=== PATIENT | male | born 1990 | race Caucasian/White ===

== ENCOUNTER → 2018-10-23 09:18 | Outpatient (CLI) | payer BC, SELFPAY ==
[2018-10-23 08:56] VITALS: BMI 30.4
[2018-10-23 11:06] LABS: AST(SGOT) 26 U/L (15-37); Alanine Aminotransfer ALT/SGPT 42 U/L (16-61); Albumin, Serum 4.2 g/dL (3.2-5.0); Alkaline Phosphatase 42 U/L (45-117); Anion Gap 8 (5-15); BUN 17 mg/dL (7-18); BUN/Creat Ratio 13.4 RATIO (10-20); Bilirubin, Direct 0.27 mg/dL (0.00-0.30); Chloride 103 mmol/L (98-107); Cholesterol 173 mg/dL (200); Creatinine, Serum 1.27 mg/dL (0.70-1.30); EST Glomerular Filtration Rate 72 mL/min (>60); Est Glom Filt Rate - Afr Amer 87 mL/min (>60); Globulin 2.7 g/dL (2.2-4.2); Glucose 86 mg/dL (74-106); High Density Lipoprotein 44 mg/dL; Protein, Total 6.9 g/dL (6.4-8.2); Sodium Level 138 mmol/L (136-145); Thyroid Stim Hormone (TSH) 2.12 uIU/mL (0.358-3.74); Triglycerides 142 mg/dL; Very Low Density Lipoprotein 28 mg/dL (5-40)
== END ==
PROVIDERS: Family Provider Family Medicine; PCP Family Medicine; Referring Provider Internal Medicine Cardiovascular Disease; Visit Provider Internal Medicine Cardiovascular Disease
DX: I10 Essential (primary) hypertension (principal)
CPT/HCPCS: 36415; 80048; 80061; 80076; 84443

== ENCOUNTER → 2024-03-04 | Outpatient (CLI) | payer OTHER, SELFPAY ==
[2024-03-04 15:05] LABS: Absolute Neutrophil Count 7.7 X10^3/uL (2.0-7.7); Basophil# 0.05 X10^3/uL; Basophil% 0.5 % (0-1); Eosinophils% 0.9 % (0-5); Hematocrit 40.8 % (40-54); Lymphocyte % 17.5 % (19-41); Mean Corp Hgb Conc 36.8 g/dL (32-36); Mean Corpuscular Hgb 34.2 pg (27.0-32.0); Mean Corpuscular Volume 93.2 fL (80-94); Mean Platelet Vol. 10.5 fl (6.2-12.0); Monocyte# 1.08 X10^3/uL; NRBC Flagged by Analyzer 0 % (0-5); Neutrophil # 7.66 X10^3/uL (2.7-7.7); Neutrophil % 70.6 % (47-70); Platelet Count 293 K/mm3 (150-450); RBC Distribution Width CV 13.1 % (11.6-14.6); RBC Distribution Width SD 44.3 fl (35.1-43.9); Red Blood Count 4.38 M/mm3 (4.6-6.2); White Blood Count 10.8 K/mm3 (4.4-11.0)
[2024-03-04 15:49] LABS: Erythrocyte Sedimentation Rate 2 mm/hr (0-20)
== END | disposition home or self-care (01) ==
LOC: LAB 14:17
PROVIDERS: Referring Provider Physician Assistant; Visit Provider Physician Assistant
DX: M25.521 Pain in right elbow (principal)
CPT/HCPCS: 36415; 85025; 85652; 86140

== ENCOUNTER 2024-04-15 09:43 | Emergency (ER) | payer OTHER, SELFPAY ==
[2024-04-15 09:45] VITALS: BP 161/101; PULSE 111; RESP 16; TEMP 36.6; O2SAT 94; BMI 30.4
--- NOTE | 2024-04-15 09:49 | EDS_ITS ---
HPI History of Present Illness Chief Complaint: Allergic Reaction [facility] Medical History Obesity Essential (primary) hypertension Home Medications ?Medication ?Instructions ?Recorded ?Last Taken ?Type cetirizine 10 mg tablet (Zyrtec) 10 mg PO QDAY PRN allergy symptoms 11/01/17 Unknown Rx #90 tabs escitalopram oxalate 10 mg tablet 10 mg PO DAILY 03/23/21 Unknown History lisinopril 20 See Rx Instructions .Route 04/08/24 Unknown Rx mg-hydrochlorothiazide 25 mg tablet .COMPLEX #90 tabs epinephrine 0.3 mg/0.3 mL 0.3 mg (0.3 mL) IM Q4H PRN 04/15/24 Unknown Rx injection, auto-injector (EpiPen) anaphylaxis #2 ea prednisone 50 mg tablet 50 mg PO DAILY #5 tabs 04/15/24 Unknown Rx Allergy/AdvReac Type Severity Reaction Status Date / Time Environmental Allergies: Allergy Mild Abd Verified 04/15/24 09:45 Uncoded (seasonal) cramps/diarrhea Family History Father Hypertension Surgical History H/O wisdom tooth extraction Social History Smoking Status: Current every day smoker tobacco type: cigarettes alcohol intake: current Alcohol type: hard liquor substance use type: does not use EXAM Physical Exam Const Vital Signs: 04/15/24 09:45 04/15/24 10:43 04/15/24 12:00 Temperature 97.9 F Temperature Source Oral Pulse Rate 111 H 83 75 Respiratory Rate 16 17 16 Blood Pressure 161/101 H 135/82 H 130/67 H Blood Pressure Mean 121 99 88 Pulse Ox 94 99 98 Oxygen Delivery Method Room Air Room Air 04/15/24 13:00 04/15/24 13:44 04/15/24 14:00 Temperature 98.4 F Temperature Source Pulse Rate 81 83 Respiratory Rate 18 18 Blood Pressure 140/89 H 132/79 H 127/83 H Blood Pressure Mean 106 96 97 Pulse Ox 97 96 Oxygen Delivery Method Room Air MDM MDM MDM Narrative Medical decision making narrative: HISTORY OF PRESENT ILLNESS: 33-year-old male presents with concern for allergic reaction. He states he was at home doing his usual activity when he began to feel itchy, he began feeling his throat becoming scratchy, and skin becoming itchy red and warm. Notes history of environmental allergies but denies any other allergies. No recent travel, new soaps, detergents, different foods. Denies eating any fish recently. He notes some mild shortness of breath but denies any nausea. REVIEW OF SYSTEMS: Pertinent positives: Hives, scratchy throat, shortness of breath Pertinent negatives: Vomiting, abdominal pain, nausea or diarrhea PHYSICAL EXAM: Nursing triage notes reviewed, Vital signs reviewed Constitutional: please see mdm HENT: MMM, posterior oropharynx patent, no trismus, no drooling, patient controlling secretions, speaking in full sentences. Eyes: Pupils equal round and reactive to light, Extraocular muscles intact Neck: No stridor, no JVD, full neck ROM Lungs: Clear to auscultation, No wheezing or rales. No increased work of breathing, no conversational dyspnea, no accessory muscle use, no nasal flaring. No respiratory distress noted Heart: Regular rate and rhythm, No murmurs, No rubs and No gallops, 2+ distal pulses (radial, femoral, posterior tibial) in all extremities Abdomen: Soft, there is no tenderness, rigidity, rebound or guarding, no obvious peritoneal signs, no palpable pulsatile abdominal masses, no auscultated abdominal bruit : No CVAT Extremities: No edema Neuro: No focal neurological deficits, cranial nerves II through XII intact, 5/5 strength in all extremities. Intact sensation to light touch in all extremities, 2+ reflexes bilateral patella tendons. Normal gait. No ataxia. Skin: Scattered urticaria noted throughout the patient's face, bilateral upper arms, MEDICAL DECISION MAKING: Chief Complaint: Allergic reaction External records reviewed: No recent ED visits or hospitalizations noted in the chart Factors affecting care: Hypertension (hydrochlorothiazide/lisinopril preparation) Social determinants of health: none History obtained from others: none Consults: none [facility] Narrative: The patient was initially tachycardic and hypertensive otherwise he is afebrile. He is protecting his airway. No indication for emergent airway management. Given signs of multiple organ systems involved with his complaint shortness of breath and obvious urticarial rash I gave epinephrine empirically for anaphylaxis. There is no immediate signs of anaphylactic shock. He was further empirically treated with Solu-Medrol, Pepcid and Benadryl. He will be observed for approximately 4 hours as per protocol. After 4 hours region. There is no evidence of rebound anaphylaxis. Patient is appropriate discharge home with prescription for epinephrine pen, instructions to return if symptoms change or worsen as well as prescriptions for prednisone, Zyrtec and Pepcid. The patient and/or family, caregivers express understanding. The patient and/or family, caregivers agrees with the plan. Shared decision making: I will have a discussion with the patient and or visitors regarding risk/benefits of further testing or admission. They will be made aware of of the risk/benefits inherent in this decision they will be given the opportunity to voice understanding. Total critical care time today provided was at least 0 minutes. This excludes separately billable procedures. Critical care time (if documented) is secondary to the patient having high probability of clinically significant/life threatening deterioration in the patient's condition which required my urgent intervention. Impression: 1. Anaphylaxis 2. Allergic reaction 3. History of hypertension Dispo: discharge This note was generated with [employer] dictation software. It may contain incorrect words, spelling, and punctuation that were not noted in review of the chart prior to signing. Discharge Plan Triage Chief Complaint: Allergic Reaction ED Provider: Joaquin Dillon Dx/Rx/DC Orders Instructions: ED Anaphylaxis Prescriptions: New epinephrine [EpiPen] 0.3 mg/0.3 mL auto-injector 0.3 mg IM Q4H PRN (Reason: anaphylaxis) Qty: 2 0RF prednisone 50 mg tablet 50 mg PO DAILY Qty: 5 0RF No Action escitalopram oxalate 10 mg tablet 10 mg PO DAILY cetirizine [Zyrtec] 10 mg tablet 10 mg PO QDAY PRN (Reason: allergy symptoms) Qty: 90 0RF lisinopril-hydrochlorothiazide 20-25 mg tablet See Rx Instructions .ROUTE .COMPLEX Qty: 90 3RF Dose Instruction: Take 1 tablet by mouth once daily Rx Instructions: Take 1 tablet by mouth once daily Primary Care Provider: Care Physician,No Primary Referrals: Yoseph Carlton MD [Med Staff - Active Staff] - Activity Restrictions/Additional Instructions: Thank you for trusting us with your care today! Please take Tylenol (2 pills, 650 mg), ibuprofen (2 pills, 400 mg) every 6 hours as needed for pain and fever control. Please take Zyrtec, Pepcid daily for the next 5 days as well as prescribed prednisone Please use epinephrine pen if you develop symptoms such as swelling, itching, difficulty swallowing, scratchiness in her throat, difficulty breathing. Please return to the emergency department if your symptoms change or worsen. Please follow with your primary care physician for further outpatient evaluation and management. Print Language: Sami Disposition Disposition: Home, Self Care Discharge Date/Time: 04/15/24 14:08
[2024-04-15] MEDS: Epi Pen (EQUIV) 0.3 MG Syringe IM (09:50)
[2024-04-15] MEDS: MethylPREDNISolone 125 MG/2 ML Vial IV (10:03)
[2024-04-15] MEDS: 0.9% Normal Saline (1000mL) 1,000 ML 999 ML IV (10:03)
[2024-04-15] MEDS: DiphenhydrAMINE 50 MG/ML Syringe 25 MG IV (10:03)
[2024-04-15] MEDS: Famotidine 200 MG/20 ML MDV 20 MG in 0.9% Normal Saline (Pres. free 8 ML 300 MG IV (10:19)
[2024-04-15 10:43] VITALS: BP 135/82; PULSE 83; RESP 17; O2SAT 99
[2024-04-15 12:00] VITALS: BP 130/67; PULSE 75; RESP 16; O2SAT 98
[2024-04-15 13:00] VITALS: BP 140/89; PULSE 81; RESP 18; O2SAT 97
[2024-04-15 13:44] VITALS: BP 132/79; PULSE 83; RESP 18; TEMP 36.9; O2SAT 96
[2024-04-15 14:00] VITALS: BP 127/83
== END 2024-04-15 14:08 | disposition home or self-care (01) ==
PROVIDERS: Emergency Provider Emergency Medicine; Visit Provider Emergency Medicine
DX: T78.2XXA Anaphylactic shock, unspecified, initial encounter (principal); F17.210 Nicotine dependence, cigarettes, uncomplicated; T78.40XA Allergy, unspecified, initial encounter; I10 Essential (primary) hypertension; Z79.899 Other long term (current) drug therapy; X58.XXXA Exposure to other specified factors, initial encounter
CPT/HCPCS: 96365; 96372; 96375; 99282; J7030; A4216; J3490

== ENCOUNTER → 2024-06-23 | Outpatient (CLI) | payer OTHER, SELFPAY ==
[2024-06-23 16:24] LABS: AST(SGOT) 37 U/L (15-37); Alanine Aminotransfer ALT/SGPT 44 U/L (16-61); Albumin, Serum 4.4 g/dL (3.2-5.0); Alkaline Phosphatase 46 U/L (45-117); Bilirubin, Direct 0.39 mg/dL (0.00-0.30); CRP < 2.90 mg/L (0.0-3.0); Globulin 3.3 g/dL (2.2-4.2); Protein, Total 7.7 g/dL (6.4-8.2); Rheumatoid Factor < 10.0 IU/mL (<15); Uric Acid 10.4 mg/dL (3.5-7.2)
[2024-06-23 17:03] LABS: Erythrocyte Sedimentation Rate < 1 mm/hr (0-20)
[2024-06-25 14:10] LABS: ANTINUCLEAR ANTIBODIES DIRECT Negative (Negative)
[2024-07-01 18:08] LABS: HLA B27 Negative (.)
== END | disposition home or self-care (01) ==
LOC: MTLAB 10:51
PROVIDERS: Referring Provider Podiatrist; Visit Provider Podiatrist
DX: M06.9 Rheumatoid arthritis, unspecified (principal)
CPT/HCPCS: 36415; 80076; 81374; 84550; 85652; 86038; 86140; 86431

== ENCOUNTER → 2024-11-04 | Outpatient (CLI) | payer OTHER, SELFPAY ==
[2024-11-04 12:38] LABS: Erythrocyte Sedimentation Rate < 1 mm/hr (0-20)
[2024-11-04 12:48] LABS: D-Dimer Quantitative (DVT/PE) < 0.27 FEU/ug/m (0.27-0.49)
[2024-11-04 12:55] LABS: ALB/GLOB Ratio 1.6 RATIO (0.9-2.4); AST(SGOT) 26 U/L (15-37); Alanine Aminotransfer ALT/SGPT 51 U/L (16-61); Albumin, Serum 4.7 g/dL (3.2-5.0); Alkaline Phosphatase 47 U/L (45-117); Anion Gap 6 (5-15); BUN 14 mg/dL (7-18); BUN/Creat Ratio 12.2 RATIO (10-20); CRP 3.28 mg/L (0.0-3.0); Calcium,Total 9.7 mg/dL (8.5-10.1); Chloride 104 mmol/L (98-107); Creatinine, Serum 1.15 mg/dL (0.70-1.30); EST Glomerular Filtration Rate 78 mL/min (>60); Est Glom Filt Rate - Afr Amer 94 mL/min (>60); Glucose 114 mg/dL (74-106); Potassium 4.4 mmol/L (3.5-5.1); Protein, Total 7.7 g/dL (6.4-8.2); Sodium Level 140 mmol/L (136-145); Troponin-I HS 5 pg/mL (3.0-78.0)
== END | disposition home or self-care (01) ==
LOC: LABSPEC 12:11
PROVIDERS: Referring Provider Nurse Practitioner Family; Visit Provider Nurse Practitioner Family
DX: R07.9 Chest pain, unspecified (principal)
CPT/HCPCS: 80053; 84484; 85379; 85652; 86140

== ENCOUNTER → 2025-08-26 | Outpatient (CLI) | payer OTHER, SELFPAY ==
--- NOTE | 2025-08-26 08:32 | US_ITS ---
PROCEDURE: ABD LIMITED W/ ELASTOGRAPHY REASON FOR EXAM: ELEVATED LIVER FUNCTION TESTS COMPARISON: None. TECHNIQUE: Procedure Code: [id number] Modality: US Procedure: ABD LIMITED W/ ELASTOGRAPHY Right upper quadrant abdominal ultrasound. [facility] ElastQ [facility] shear wave elastography for non-invasive assessment of liver tissue stiffness. [facility] EPIQ Elite. FINDINGS: LIVER: Size: Enlarged (hepatomegaly) Length: 18.1 cm Echotexture: Diffusely echogenic suggesting fatty infiltration. Focal fatty sparing is seen adjacent to the gallbladder fossa. Contour: Normal Lesions: None identified Elastography: EQI Med: 8.1 kPa EQI Med Spencer: 1.63 m/s IQR/Med: 16 %* GALLBLADDER: Sludge is seen within the gallbladder lumen. COMMON BILE DUCT: Normal measuring 3.3 mm . PANCREAS: Visualized portions are unremarkable. The distal body and tail are obscured by bowel gas. Visualized portions of the right kidney are unremarkable. No right upper quadrant ascites. US/ABD Limited w/ Elastography IMPRESSION: Moderate degree of hepatic fibrosis. Hepatomegaly and diffuse fatty infiltration of the liver. Sludge is seen within the gallbladder lumen. Reference Values: SRU <1.37 m/s (5.7kPa): No to mild fibrosis 1.37 m/s - 2.2 m/s: Moderate to severe fibrosis >2.2 m/s (15kPa): Significant fibrosis / cirrhosis METAVIR Score F2 or higher: 1.34 m/s (5.7kPa) F3 or higher: 1.55 m/s (7.3kPa) F4: 1.80 m/s (10kPa) * If the IQR/Med is >30%, the variance in the measurements is a large and the a ccuracy of the measurement may be in question. Reading Location: [place] [id number]
== END | disposition home or self-care (01) ==
LOC: US 08:31
PROVIDERS: PCP Internal Medicine; Referring Provider Internal Medicine; Visit Provider Internal Medicine
DX: R79.89 Other specified abnormal findings of blood chemistry (principal)
CPT/HCPCS: 76705; 76981

== ENCOUNTER → 2025-09-30 | Outpatient (CLI) | payer OTHER, SELFPAY ==
[2025-09-30 10:43] LABS: Hematocrit 42.8 % (40-54); Hemoglobin 15.5 g/dL (13.0-16.5); Immature Granulocytes Count 0.030 X10^3/uL (0.0-0.0); Mean Corp Hgb Conc 36.2 g/dL (32-36); Mean Corpuscular Volume 89.7 fL (80-94); Mean Platelet Vol. 11.8 fl (6.2-12.0); NRBC Flagged by Analyzer 0 % (0-5); Platelet Count 239 K/mm3 (150-450); RBC Distribution Width CV 13.2 % (11.6-14.6); RBC Distribution Width SD 43.2 fl (35.1-43.9); Red Blood Count 4.77 M/mm3 (4.6-6.2); White Blood Count 7.6 K/mm3 (4.4-11.0)
[2025-09-30 11:25] LABS: AST(SGOT) 29 U/L (<=37); Alanine Aminotransfer ALT/SGPT 40 U/L (<=46); Albumin, Serum 4.7 g/dL (3.5-5.0); Alkaline Phosphatase 45 U/L (40-129); Anion Gap 10 (5-15); BUN 10 mg/dL (4-19); BUN/Creat Ratio 8.6 RATIO (10-20); Bilirubin, Direct 0.56 mg/dL (0.00-0.30); Calcium,Total 9.4 mg/dL (7.6-11.0); Carbon Dioxide 27.3 mmol/L (21.0-32.0); Chloride 102 mmol/L (98-108); Globulin 1.9 g/dL (2.2-4.2); Glucose 117 mg/dL (70-99); Potassium 4.0 mmol/L (3.3-5.1)
[2025-10-06 11:08] LABS: HEPATITIS B SURFACE AG Negative (Negative); Hep C Antibodies Non Reactive (Non Reactive); Testosterone, % Free 3.61 % (1.50-4.20); Testosterone, Free 17.51 ng/dL (5.00-21.00)
== END | disposition home or self-care (01) ==
LOC: CIMLAB 09:21
PROVIDERS: PCP Internal Medicine; Referring Provider Internal Medicine; Visit Provider Internal Medicine
DX: R68.82 Decreased libido (principal); K76.0 Fatty (change of) liver, not elsewhere classified
CPT/HCPCS: 36415; 80053; 80074; 82248; 84402; 84403; 85025